=== PATIENT | male | born 1995 | race Caucasian/White ===

== ENCOUNTER 2019-11-04 16:15 | Emergency (ER) | payer BC ==
[~2019-11-04] VITALS: Ht 175.3 cm; Wt 88.6 kg
[2019-11-04] MEDS ORDERED: AMOXICILLIN 50500 MG PO (16:24)
[2019-11-04 17:12] LABS: ALANINE AMINOTRANSFERASE 22 U/L (4-49); ALBUMIN 4.6 gm/dL (3.5-5.0); ALKALINE PHOSPHATASE 47 U/L (50-136); ANION GAP 6 mmol/L (7-16); AST,SGOT 30 U/L (15-37); BILIRUBIN,TOTAL 0.7 mg/dL (0.0-1.0); BLOOD UREA NITROGEN 11 mg/dL (9-20); CALCIUM 9.5 mg/dL (8.4-10.2); CARBON DIOXIDE 31 mmol/L (22-30); CHLORIDE 101 mmol/L (98-107); CREATININE, serum 1.13 (0.66-1.25); GLUCOSE 82 mg/dL (74-106); POTASSIUM 4.2 mmol/L (3.4-5.0); SODIUM 139 mmol/L (137-145); TOTAL PROTEIN 7.9 gm/dL (6.4-8.2)
[2019-11-04 17:13] LABS: ALCOHOL(ethanol),MEDICAL < 10 mg/dL
[2019-11-04 17:26] LABS: BASO % 0.4 % (0.0-2.0); EOS % 0.7 % (0-4.0); GRAN # 2.7 (1.4-6.5); GRAN % 49.6 % (42.2-75.2); HEMATOCRIT 44.1 % (42.0-52.0); HEMOGLOBIN 15.1 g/dl (13.5-18.0); LYMPH # 2.4 (1.2-3.4); LYMPH % 44.5 % (20.0-51.0); MEAN CELL VOLUME 93 fl (80.0-100.0); MEAN CORPUSCULAR HEMOGLOBIN 32 pg (27.0-31.0); MEAN CORPUSCULAR HGB CONC 34 g/dl (33.0-37.0); MEAN PLATELET VOLUME 10.5 fl (7.4-10.4); MONO # 0.3 (0.1-0.6); MONO % 4.6 % (1.7-9.3); PLATELET COUNT 217 K/mm3 (130-400); RED BLOOD COUNT 4.73 M/mm3 (4.20-5.60); REDCELL DISTRIBUTION WIDTH-CV 12.2 % (11.5-14.5)
[2019-11-04 17:47] LABS: TRICYCLIC ANTIDEPRESS URINE NEGATIVE
[2019-11-04 18:43] VITALS: BP 108/68; PULSE 58; TEMP 98.2
== END 2019-11-04 18:47 | disposition home or self-care (01) ==
LOC: COL.ER 16:15
PROVIDERS: Family Medicine
DX: R41.82 Altered mental status, unspecified (principal)
CPT/HCPCS: J7120

== ENCOUNTER 2019-11-18 12:21 | Emergency (ER) | payer SELFPAY ==
[~2019-11-18] VITALS: Ht 175.3 cm; Wt 90.9 kg
[~2019-11-18 12:21] MED LIST: AMOXICILLIN 50500 MG PO
[2019-11-18 12:54] LABS: HEMATOCRIT 51.5 % (42.0-52.0); HEMOGLOBIN 16.9 g/dl (13.5-18.0); MEAN CELL VOLUME 95 fl (80.0-100.0); MEAN CORPUSCULAR HEMOGLOBIN 31 pg (27.0-31.0); MEAN CORPUSCULAR HGB CONC 33 g/dl (33.0-37.0); MEAN PLATELET VOLUME 10.9 fl (7.4-10.4); PLATELET COUNT 304 K/mm3 (130-400); RED BLOOD COUNT 5.43 M/mm3 (4.20-5.60); REDCELL DISTRIBUTION WIDTH-CV 12.4 % (11.5-14.5)
[2019-11-18 13:02] LABS: ACETAMINOPHEN < 10 ug/mL (10-30); ALANINE AMINOTRANSFERASE 25 U/L (4-49); ALBUMIN 4.8 gm/dL (3.5-5.0); ALCOHOL(ethanol),MEDICAL < 10 mg/dL; ALKALINE PHOSPHATASE 59 U/L (50-136); ANION GAP 11 mmol/L (7-16); AST,SGOT 49 U/L (15-37); BLOOD UREA NITROGEN 9 mg/dL (9-20); CALCIUM 9.6 mg/dL (8.4-10.2); CARBON DIOXIDE 25 mmol/L (22-30); CHLORIDE 103 mmol/L (98-107); CREATININE, serum 1.24 (0.66-1.25); GLUCOSE 196 mg/dL (74-106); POTASSIUM 4.6 mmol/L (3.4-5.0); SALICYLATE < 1.0 mg/dL; SODIUM 139 mmol/L (137-145); TOTAL PROTEIN 8.1 gm/dL (6.4-8.2)
[2019-11-18 13:39] LABS: NEUTROPHILS 33 % (42.0-75.2); PLATELET ESTIMATE NORMAL (NORMAL)
[2019-11-18 13:42] LABS: LYMPHOCYTE 64 % (20.0-51.0)
[2019-11-18 15:48] LABS: COLLECTION METHOD CLEAN CATCH
[2019-11-18 16:02] LABS: MUCOUS Present /lpf; PH 6 (5-8); SQUAMOUS EPITHELIAL 0-2 /hpf; URINE APPEARANCE Hazy; URINE BACTERIA None Seen /hpf; URINE BILIRUBIN Negative (NEGATIVE); URINE BLOOD Negative (NEGATIVE); URINE COLOR Yellow; URINE GLUCOSE Negative (NEGATIVE); URINE KETONE Negative (NEGATIVE); URINE LEUKOCYTE ESTERASE Negative (NEGATIVE); URINE NITRATE Negative (NEGATIVE); URINE PROTEIN(semi-quant) 2+ (NEGATIVE); URINE RBC 0-2 /hpf; URINE UROBILINOGEN Negative (NEGATIVE)
[2019-11-18 16:09] LABS: TRICYCLIC ANTIDEPRESS URINE NEGATIVE
[2019-11-18 16:45] VITALS: BP 134/87; PULSE 95; TEMP 97.2
[2019-11-19 08:51] LABS: PATHOLOGY DIFF REVIEW OK
== END 2019-11-18 17:00 | disposition left against medical advice (07) ==
LOC: COL.ER 12:21
PROVIDERS: Emergency Medicine
DX: T40.2X1A Poisoning by other opioids, accidental (unintentional), initial encounter (principal)
CPT/HCPCS: J2310

== ENCOUNTER 2020-09-29 22:36 | Emergency (ER) | payer SELFPAY ==
[~2020-09-29] VITALS: Ht 175.3 cm; Wt 95.5 kg
[2020-09-29 22:37] VITALS: TEMP 97.6
[2020-09-29 22:55] LABS: BASO % 0.2 % (0.0-2.0); EOS % 0.2 % (0-4.0); GRAN # 14.6 (1.4-6.5); GRAN % 81.1 % (42.2-75.2); HEMATOCRIT 46.9 % (42.0-52.0); HEMOGLOBIN 15.5 g/dl (13.5-18.0); LYMPH # 2.2 (1.2-3.4); MEAN CELL VOLUME 95 fl (80.0-100.0); MEAN CORPUSCULAR HEMOGLOBIN 31 pg (27.0-31.0); MEAN CORPUSCULAR HGB CONC 33 g/dl (33.0-37.0); MEAN PLATELET VOLUME 10.6 fl (7.4-10.4); MONO # 1.1 (0.1-0.6); MONO % 5.8 % (1.7-9.3); PLATELET COUNT 241 K/mm3 (130-400); RED BLOOD COUNT 4.96 M/mm3 (4.20-5.60); REDCELL DISTRIBUTION WIDTH-CV 12.7 % (11.5-14.5)
[2020-09-29 23:06] LABS: ALANINE AMINOTRANSFERASE 95 U/L (4-49); ALCOHOL(ethanol),MEDICAL < 10 mg/dL; ALKALINE PHOSPHATASE 48 U/L (50-136); ANION GAP 15 mmol/L (7-16); AST,SGOT 112 U/L (15-37); BILIRUBIN,TOTAL 1.2 mg/dL (0.0-1.0); BLOOD UREA NITROGEN 13 mg/dL (9-20); CALCIUM 9.2 mg/dL (8.4-10.2); CARBON DIOXIDE 24 mmol/L (22-30); CHLORIDE 99 mmol/L (98-107); CREATININE, serum 1.28 (0.66-1.25); GLUCOSE 211 mg/dL (74-106); POTASSIUM 4.2 mmol/L (3.4-5.0); SODIUM 138 mmol/L (137-145); TOTAL PROTEIN 8.8 gm/dL (6.4-8.2)
[2020-09-29 23:17] LABS: TROPONIN-I < 0.012 ng/mL (0.000-0.035)
[2020-09-30] MEDS ORDERED: NARCAN4 MG NS (01:30)
[2020-09-30 01:50] VITALS: BP 122/85; PULSE 92
== END 2020-09-30 01:50 | disposition left against medical advice (07) ==
LOC: COL.ER 22:36
PROVIDERS: Emergency Medicine
DX: T40.2X1A Poisoning by other opioids, accidental (unintentional), initial encounter (principal); I46.9 Cardiac arrest, cause unspecified; X58.XXXA Exposure to other specified factors, initial encounter

== ENCOUNTER 2020-11-16 12:50 | Emergency (ER) | payer SELFPAY ==
[~2020-11-16] VITALS: Ht 172.7 cm; Wt 95.5 kg
[~2020-11-16 12:50] MED LIST changes: +NARCAN4 MG NS
[2020-11-16 12:56] VITALS: TEMP 99.8
[2020-11-16 15:45] VITALS: BP 141/76; PULSE 111
== END 2020-11-16 15:45 | disposition home or self-care (01) ==
LOC: COL.ER 12:50
DX: T40.422A Poisoning by tramadol, intentional self-harm, initial encounter (principal); T43.622A Poisoning by amphetamines, intentional self-harm, initial encounter